=== PATIENT | male | born 1955 | race Caucasian/White ===

== ENCOUNTER 2017-04-08 23:22 | Emergency (ER) | payer BC, OTHER ==
[~2017-04-08] VITALS: Ht 175.3 cm; Wt 70.0 kg
[2017-04-08 23:26] VITALS: BP 163/82; PULSE 83; RESP 16; TEMP 99; O2SAT 95
--- NOTE | 2017-04-08 23:34 | PD ---
HPI Chief Complaint: Alcohol/Drug Intoxication Time Seen by Provider: 23:31 Travel History International Travel<30 days: No Contact w/Intl Traveler<30days: No Traveled to known affect area: No History of Present Illness HPI The patient is a 61 year old male who presents to the [facility] [address] emergency department with a history of reportedly drinking more alcohol than usual this evening and falling and hitting his head. The patient was found on the road with repetitive speech. The patient was brought in under a Hewitt's act for evaluation as the patient was refusing to be transported to the emergency department. He reports that normally he drinks 3-4 beers per day. Today he drank more than usual. He cannot recall hitting his head and is unsure whether he lost consciousness. The patient has an approximately 2 cm laceration over the left side of the forehead. He reports having neck pain, however he reports having chronic neck pain that is no worse currently. He denies having any numbness or tingling to his extremities. He denies having any weakness of his extremitie. He denies having any extremity pain. The patient cannot recall when he last had his tetanus updated. He reports that it was a long time ago. On review of systems otherwise, the patient denies having any known fevers, cough, congestion, chest pain, shortness of breath, abdominal pain, vomiting, diarrhea, urinary symptoms, or other neurologic symptoms. [facility] Past Medical History Narrative Medical The patient's past medical history is significant for attention deficit disorder. ADD: Yes Diminished Hearing: No Tetanus Vaccination: Unknown Past Surgical History Narrative Surgical The patient denies any past surgical history. Social History Alcohol Use: Yes (3-4 beers daily) Tobacco Use: No Substance Use: No Allergies-Medications (Allergen,Severity, Reaction): Coded Allergies: codeine (Verified Allergy, Intermediate, RASH, 04/08/17) Narrative Medication Ritalin Review of Systems Except as stated in HPI: all other systems reviewed are Neg General / Constitutional: No: Fever Eyes: No: Visual changes HENT: Positive: Headaches, Neck Pain, No: Neck Stiffness Cardiovascular: No: Chest Pain or Discomfort Respiratory: No: Shortness of Breath Gastrointestinal: No: Nausea, Vomiting, Diarrhea, Abdominal Pain Genitourinary: No: Dysuria Musculoskeletal: No: Pain Skin: No Rash Neurologic: Positive: Change in Mentation, Slurred Speech, No: Weakness, Focal Abnormalities, Paresthesia, Sensory Disturbance Psychiatric: Positive: Substance Abuse, No: Depression, Mood Disorder, Homicidal Ideation Endocrine: No: Polydipsia Hematologic/Lymphatic: No: Easy Bruising Physical Exam Narrative General: The patient is a well-developed well-nourished male in no acute distress. Head and Neck exam: Head is normocephalic, with an approximately 2 cm laceration over the left side of the forehead. This is linear, bleeding is controlled. Eyes: EOMI, pupils are equal round and reactive to light. Nose: Midline septum with pink mucous membranes Mouth: Dentition unremarkable. Moist mucus membranes. Posterior oropharynx is not erythematous. No tonsillar hypertrophy. Uvula midline. Airway patent. Neck: No palpable lymphadenopathy. No nuchal rigidity. No thyromegaly. No spinous process tenderness to palpation. No step-off or crepitus. No erythema or ecchymosis. Cardiovascular: Regular rate and rhythm without murmurs, gallops, or rubs. Lungs: Clear to auscultation bilaterally. No wheezes, rhonchi, or rales. Abdomen: Soft, without tenderness to palpation in all 4 quadrants of the abdomen. No guarding, rebound, or rigidity. Normal bowel sounds are audible. No tenderness on palpation of McBurney's point. Extremities: No clubbing, cyanosis, or edema. 2+ pulses in all 4 extremities. Back: No spinous process tenderness to palpation. No costovertebral angle tenderness to palpation. Neurologic Exam: Cranial nerves 2-12 were intact on exam. Strength is 5/5 in all 4 extremities. No sensory deficits noted. Mildly slurred speech. The patient is otherwise oriented to person, place, time, however not situation. Skin Exam: No rash noted. Intact skin that is warm and dry. Data Data Last Documented VS Vital Signs Date Time Temp Pulse Resp B/P (MAP) Pulse Ox O2 Delivery O2 Flow Rate FiO2 04/08/17 23:31 84 16 96 Room Air 04/08/17 23:26 99.0 163/82 (109) Orders Orders Ct Brain W/O Iv Contrast(Rout) (04/08/17 23:42) Ct Cerv Spine W/O Contrast (04/08/17 23:42) Hcgt-Inb-Oafith (Booster) Inj (Boostrix (04/08/17 23:45) Cephalexin (Keflex) (04/08/17 23:45) MDM Medical Decision Making Medical Screen Exam Complete: Yes Emergency Medical Condition: Yes Medical Record Reviewed: Yes Interpretation(s) Last Impressions Head CT 04/08/172341 Signed Impressions: Service Date/Time: Sunday, April 09, 2017 00:54 - CONCLUSION: 1. No evidence of acute intracranial pathology. No masses are identified. Boo Mo MD Cervical Spine CT 04/08/172341 Signed Impressions: Service Date/Time: Sunday, April 09, 2017 00:54 - CONCLUSION: 1. Moderate degenerative changes as described above. There is no evidence of acute fracture. 2. 4 mm nodule right apex. Followup CT scan in 6 months is recommended. Boo Mo MD Differential Diagnosis Intracranial hemorrhage, versus cervical spine injury, versus facial laceration , versus head injury Narrative Course During the course of the patients emergency department visit, the patients history, examination, and differential diagnosis were reviewed with the patient. The patient was placed on a shipping and receiving assistant with oximetry and frequent blood pressure monitoring. The patient had a CT scan of the head and neck ordered. The patient was initially provided an update to his tetanus, Keflex 500 mg by mouth 1 for prevention of infection in his wounds. Radiology studies were reviewed and remarkable for a CT scan of the brain that showed no acute abnormality. CT scan of the C-spine shows moderate degenerative changes, no acute fracture, 4 mm nodule the right apex of the lung , follow-up CT scan of the lungs is recommended in 6 months. The patient will be given a copy of his CT scan findings for follow-up with his primary care physician. The patient is instructed regarding the importance of decreasing his alcohol intake. The patient's wound was cleaned with chlorhexidine and water. The patient had Dermabond applied to the wound. The patient tolerated the procedure well. The patient is instructed to keep the area clean and avoid putting any ointment on this site. The patient is resting comfortably and feels better, is alert and in no distress. The patients results and examination findings were discussed with the patient. The repeat examination is unremarkable and benign. The history, exam, diagnostic testing, and current condition do not suggest any significant pathology to warrant further testing, continued ED treatment, admission, or surgical evaluation at this point. The vital signs have been stable. The patient does not have uncontrollable pain, intractable vomiting, or other significant symptoms. The patient's condition is stable and appropriate for discharge. The patient will pursue further outpatient evaluation with a primary care physician or other designated or consulting physician as indicated in the discharge instructions. The patient expressed understanding and was agreeable with this plan. Diagnosis Primary Impression: Head injury Qualified Codes: S09.90XA - Unspecified injury of head, initial encounter Additional Impressions: Facial laceration Qualified Codes: S01.81XA - Laceration without foreign body of other part of head, initial encounter Alcohol intoxication Qualified Codes: F10.929 - Alcohol use, unspecified with intoxication, unspecified Referrals: Primary Care Physician 2 days Patient Instructions: Facial Laceration (ED), General Instructions, Head Injury (ED) Med/Other Pt SpecificInfo: No Change to Meds Disposition: 01 DISCHARGE HOME Condition: Stable Livier Sanderson MD Apr 08, 2017 23:34
[2017-04-08] MEDS ORDERED: DIPHTH/TETANUS/ACEL PERTUSSIS (BOOSTER) 0.5 ML VIAL/PFS IM ONE (23:45)
[2017-04-08] MEDS ORDERED: CEPHALEXIN MONOHYDRATE 500 MG CAP PO ONE (23:45)
--- NOTE | 2017-04-09 01:10 | RADRPT ---
EXAM DATE/TIME: 04/09/2017 00:54 [facility] COMPARISON: No previous studies available for comparison. INDICATIONS : Trauma. Fall. ETOH RADIATION DOSE: 37.27 CTDIvol (mGy) MEDICAL HISTORY : None SURGICAL HISTORY : None. ENCOUNTER: Initial ACUITY: 1 day PAIN SCALE: 0/10 LOCATION: cranial TECHNIQUE: Multiple contiguous axial images were obtained of the head. Using automated exposure control and adj ustment of the mA and/or kV according to patient size, radiation dose was kept as low as reasonably a chievable to obtain optimal diagnostic quality images. DICOM format image data is available electro nically for review and comparison. FINDINGS: CEREBRUM: The ventricles are normal for age. No evidence of midline shift, mass lesion, hemorrhage or acute in farction. No extra-axial fluid collections are seen. POSTERIOR FOSSA: The cerebellum and brainstem are intact. The 4th ventricle is midline. The cerebellopontine angle i s unremarkable. EXTRACRANIAL: The visualized portion of the orbits is intact. SKULL: The calvaria is intact. No evidence of skull fracture. CONCLUSION: 1. No evidence of acute intracranial pathology. No masses are identified. Boo Mo MD on April 09, 2017 at 1:08 Board Certified Radiologist. This report was verified electronically.
--- NOTE | 2017-04-09 01:30 | RADRPT ---
EXAM DATE/TIME: 04/09/2017 00:54 [facility] COMPARISON: No previous studies available for comparison. INDICATIONS : Trauma. Fall. ETOH RADIATION DOSE: 26.39 CTDIvol (mGy) MEDICAL HISTORY : None SURGICAL HISTORY : None. ENCOUNTER: Initial ACUITY: 1 day PAIN SCALE: 0/10 LOCATION: neck TECHNIQUE: Volumetric scanning of the cervical spine was performed. Multiplanar reconstructions in the sagittal, coronal and oblique axial planes were performed. Using automated exposure control and adjustment o f the mA and/or kV according to patient size, radiation dose was kept as low as reasonably achievable to obtain optimal diagnostic quality images. DICOM format image data is available electronically f or review and comparison. FINDINGS: Sagittal images demonstrate normal vertebral body alignment and curvature. The odontoid is intact. Th e occipital condyles and lateral masses of C1 are intact. Axial images were performed from C2-C3 to C7-T1. There is osteorathritis involving the atlantoaxial joint with sclerosis and osteophyte format ion. There is multilevel disc space narrowing and marginal osteophyte formation maximal at C6-C7. The re is a 4 mm nodule in the right apex. Followup CT scan in 6 months is recommended. C2-C3: There is osteophytic ridging asymmetric to the right. There is uncovertebral joint hypertrophy on the right side. There is moderate neural foraminal narrowing on the right. C3-C4: There is mild annular bulge of the disc. There is mild facet arthritis bilaterally. There is mild rig ht sided neural foraminal narrowing. C4-C5: There is no evidence of disc protrusion or spinal canal stenosis. There is mild facet arthritis bilat erally. C5-C6: There is mild annular bulge of the disc. There is mild facet arthritis bilaterally. C6-C7: There is mild annular bulge of the disc. There is moderate facet arthritis bilaterally with ligamentu m flavum hypertrophy. C7-T1: There is no evidence of disc protrusion or spinal canal stenosis. There is mild facet arthritis on th e left. CONCLUSION: 1. Moderate degenerative changes as described above. There is no evidence of acute fracture. 2. 4 mm nodule right apex. Followup CT scan in 6 months is recommended. Boo Mo MD on April 09, 2017 at 1:24 Board Certified Radiologist. This report was verified electronically.
[2017-04-09 05:36] VITALS: BP 141/79; PULSE 71; RESP 16; O2SAT 97
== END 2017-04-09 06:19 | disposition home or self-care (01) ==
LOC: NEPC 23:22
DX: S01.81XA Laceration without foreign body of other part of head, initial encounter (principal); F10.129 Alcohol abuse with intoxication, unspecified; W19.XXXA Unspecified fall, initial encounter; Z23 Encounter for immunization
CPT/HCPCS: 12011; 70450; 72125; 90471; 90715